=== PATIENT | male | born 1995 | race Caucasian/White ===

== ENCOUNTER 2020-07-15 12:39 | Outpatient (CLI) | payer BC ==
[2020-07-15] MEDS ORDERED: Lidocaine 1% PF 10 ML AMP ONE (13:05)
[2020-07-15] MEDS ORDERED: EPINEPHrine 1 MG/ML AMP ONE (13:05)
[2020-07-15] MEDS ORDERED: Gadobenate Dimeglumine 529 MG/1 ML (20ML VIAL) ONE (13:05)
[2020-07-15] MEDS ORDERED: Iopamidol 300 61% 50 ML VIAL FS ONE (13:05)
--- NOTE | 2020-07-15 14:28 | RAD ---
PROCEDURE: Fluoroscopic right shoulder arthrogram INDICATION: Right shoulder pain; right shoulder subluxations COMPARISON: None TECHNIQUE: Informed consent was obtained. Preprocedure manager economic images were obtained of the right should er. The patient was placed supine on the fluoroscopic table. A timeout was performed. Site overlying the right shoulder was prepped and draped in the usual sterile fashion. Buffered 1% lidocai ne was administered into the overlying subcutaneous tissues. Under fluoroscopic guidance, a 22-gauge spinal needle was guided down into the right glenohumeral joint. Confirmation of needle loca lization was confirmed by injecting 1 cc of the buffered 1% lidocaine. Following this 916)of the dilute Multihance solution MR Mix: 23.5 mL solution containing 10 mL of 0.008 dilution of Multihance, 8 mL Isovue 300, 5 mL 1% Lidocaine, 0.5 mL of 1mg/mL Epinephrine was injected. Contrast was visualized within the right glenohumeral joint with fluoroscopy. The needle was removed. The injectio n site was then cleansed and bandage. The patient tolerated the injection without difficulty. Fluoroscopic time: 0.3minutes Fluoroscopic dose: 2.26mcg/sq m FINDINGS: No acute osseous abnormality. IMPRESSION: Successful right shoulder arthrogram. The patient is to have a follow-up MRarthrogram of the right shoulder. Please see this report for further details.
--- NOTE | 2020-07-15 15:05 | MRI ---
EXAM: MRI Upper Ext Jt Rt W Con DATE: 07/15/2020 12:00 AM INDICATION: Right shoulder instability and subluxation COMPARISON: Right shoulder radiograph dated July 15, 2020 FINDING: Please see the separately dictated, concurrently performed right shoulder arthrogram for de tails concerning the injection technique. There is a full-thickness tear involving the glenoid labrum along the inferior and anterior inferior margin of the glenoid extending into the anterior, superior and posterior superior glenoid labrum consistent with a long Bankart tear. There is tear extension into portions of the biceps anchor on im age 11 of series 6. There is no evidence of tear extension into the biceps tendon. Biceps tendon is located. The rotator cuff is intact. No rotator cuff muscular atrophy is evident. Glenohumeral articu lar surface is normal-appearing. AC joint is normal-appearing IMPRESSION: 1. Long Bankart tear extending from approximately the 6:00 through the 10:00 position and into the bi ceps anchor. 2. The rotator cuff is intact. 3. The glenohumeral articular surface appears within normal limits.
[2020-07-15] MEDS ORDERED: Magnevist 469MG/ML 20 ML VIAL ONE (16:28)
== END 2020-07-15 12:40 | disposition home or self-care (01) ==
LOC: RAD 12:39
PROVIDERS: ATTEND Orthopaedic Surgery
DX: S43.001A Unspecified subluxation of right shoulder joint, initial encounter (principal); S43.431A Superior glenoid labrum lesion of right shoulder, initial encounter
CPT/HCPCS: 23350; A9577; A9579; J0171; J2001; Q9967

== ENCOUNTER 2021-02-16 16:06 | Outpatient (CLI) | payer BC ==
[2021-02-17 01:56] LABS: SARS-CoV-2 PCR by NAA Not Detected (NotDetected)
== END 2021-02-16 16:07 | disposition home or self-care (01) ==
LOC: LABBT 16:06
PROVIDERS: ATTEND Orthopaedic Surgery
DX: Z01.812 Encounter for preprocedural laboratory examination (principal); S43.491A Other sprain of right shoulder joint, initial encounter; Z20.822 Contact with and (suspected) exposure to COVID-19
CPT/HCPCS: 87635; U0003; U0005

== ENCOUNTER 2021-02-19 06:04 | Day surgery (SDC) | payer BC ==
[2021-02-18 09:53] VITALS: BMI 21.8
[2021-02-19] MEDS ORDERED: Vancomycin 1 GM/200 ML BAG ONE (06:31)
[2021-02-19] MEDS ORDERED: EPINEPHrine 1 MG/ML AMP ONE (06:52)
[2021-02-19] MEDS ORDERED: Midazolam HCl 2 mg/2 ml Vial ONE (06:52)
[2021-02-19] MEDS ORDERED: Fentanyl 100 MCG/2 ML VIAL ONE (06:52)
[2021-02-19] MEDS ORDERED: Ondansetron PF 4 MG/2 ML Vial ONE (07:33)
[2021-02-19] MEDS ORDERED: ePHEDrine Sulfate 50 MG/10 ML VIAL ONE (07:33)
[2021-02-19] MEDS ORDERED: Ketorolac Tromethamine 30 MG/ML VIAL ONE (07:33)
[2021-02-19] MEDS ORDERED: Rocuronium Bromide 10 MG/ML (10ML VIAL) ONE (07:33)
[2021-02-19] MEDS ORDERED: Bupivacaine PF 0.5% 30 ML VIAL ONE (07:33)
[2021-02-19] MEDS ORDERED: Dexamethasone 20 MG/5 ML VIAL ONE (07:33)
[2021-02-19] MEDS ORDERED: PHENYLEPHRINE-NS 100 MCG/ML 10 ML SYRINGE ONE (07:33)
[2021-02-19] MEDS ORDERED: Ropivacaine 0.2% 550 ML 550 ML NERVE BLCK SCH (07:45)
[2021-02-19] MEDS ORDERED: Ondansetron PF 4 MG/2 ML Vial IVP PRN (07:45)
[2021-02-19] MEDS ORDERED: Promethazine HCl 25 MG/ML VIAL IM PRN (07:45)
[2021-02-19] MEDS ORDERED: Zolpidem Tartrate 5 MG TAB PO PRN (07:45)
== END 2021-02-19 13:30 | disposition home or self-care (01) ==
LOC: SDC 06:04
PROVIDERS: ATTEND Orthopaedic Surgery
PROC: 0RQJ0ZZ Repair Right Shoulder Joint, Open Approach (ICD-10-PCS; principal; 2021-02-19)
DX: S43.001A Unspecified subluxation of right shoulder joint, initial encounter (principal); S43.491A Other sprain of right shoulder joint, initial encounter; M25.311 Other instability, right shoulder; G89.18 Other acute postprocedural pain; I10 Essential (primary) hypertension; Z79.899 Other long term (current) drug therapy; Z88.2 Allergy status to sulfonamides
CPT/HCPCS: A4306; C1713; J0171; J0690; J1100; J1885; J2250; J2405; J2795; J3010; J3370; S0020